=== PATIENT | female | born 1965 | race Caucasian/White ===

== ENCOUNTER 2021-12-07 11:56 | Observation (INO) | payer MEDICARE, MEDICAID ==
[2021-12-07 12:36] LABS: #Basophils 0.1 10x3/uL (0.0-0.2); #Eosinphils 0.4 10x3/uL (0.0-0.5); #Monocytes 0.6 10x3/uL (0.0-1.1); #Neutrophils 6.8 10x3/uL (1.5-8.4); %Basophils 0.7 % (0.0-2.0); %Eosinophils 3.8 % (0.0-6.0); %Lymphocytes 25.9 % (18.0-47.0); %Monocytes 5.2 % (0.0-10.0); %Neutrophils 64.3 % (40.0-75.0); Mean Corpuscular HGB CONC 30.4 g/dL (32.0-36.0); Mean Corpuscular Hemoglobin 27.4 pg (27.0-33.0); Mean Corpuscular Volume 90.2 fl (81.6-98.3); Mean Platelet Volume 10.4 fl (7.4-10.4); Platelet Count 350 10x3/uL (150-450); RBC Distribution Width 15.9 % (11.5-14.5); Red Blood Cell (RBC) Count 5.11 10x6/uL (3.90-5.03); White Blood Cell (WBC) Count 10.6 10x3/uL (3.5-10.5)
[2021-12-07 12:59] LABS: ALT (SGPT) 18 U/L (8-55); AST (SGOT) 19 U/L (5-34); Albumin 4.5 g/dL (3.5-5.0); Alkaline Phosphatase 80 U/L (40-110); Anion Gap 19 mmol/L (10-20); BUN (Urea Nitrogen) 19 mg/dL (9.8-20.1); Bilirubin, Total 0.6 mg/dL (0.2-1.2); Calc. Creatinine Clearance 0 mL/min (70-130); Calcium 9.8 mg/dL (7.8-10.44); Carbon Dioxide 21 mmol/L (22-29); Chloride 103 mmol/L (98-107); Globulin 3.5 g/dL (2.4-3.5); Glucose 193 mg/dL (70-105); Potassium 4.4 mmol/L (3.5-5.1); Sodium 139 mmol/L (136-145)
[2021-12-07 13:02] LABS: Bilirubin Neg (Negative); Blood, Urine Negative (Negative); Clarity Clear (Clear); Glucose, Urine (Dipstick) >=1000 mg/dL (Negative); Ketone, Urine Negative (Negative); Leukocyte 25 (Negative); Nitrite Negative (Negative); Protein, Urine (Dipstick) Negative (Neg-Trace); Specific Gravity, Urine 1.015 (1.002-1.036); Urobilinogen Normal mg/dL (Less than 2)
[2021-12-07 13:10] LABS: Bacteria/HPF Rare-Few HPF (None Seen); RBC/HPF 0-3 HPF (0-3); Squamous Epithelial 0-3 HPF (0-3)
[2021-12-07] MEDS ORDERED: Aspirin 325 MG TAB ONE (14:20)
[2021-12-07 16:50] VITALS: BMI 31.2
[2021-12-07] MEDS ORDERED: Acetaminophen 325 MG TAB PO PRN (19:07)
[2021-12-07] MEDS ORDERED: Ondansetron ODT 4 MG TAB PO PRN (19:07)
[2021-12-07] MEDS ORDERED: hydrALAZINE 20 MG/ML VIAL SLOW IVP PRN (19:09)
[2021-12-07] MEDS ORDERED: ALPRAZolam 1 MG TAB PO PRN (19:10)
[2021-12-07] MEDS ORDERED: Dextrose 50% Abboject 50 ML SYRINGE SLOW IVP PRN (19:11)
[2021-12-07] MEDS ORDERED: Dextrose 5% in Water 1,000 ML IV PRN (19:11)
[2021-12-07] MEDS: HumaLOG 300 UNITS/3 ML VIAL SC PRN (22:15)
[2021-12-08 05:57] LABS: #Basophils 0.1 10x3/uL (0.0-0.2); #Eosinphils 0.4 10x3/uL (0.0-0.5); #Monocytes 0.6 10x3/uL (0.0-1.1); #Neutrophils 4.9 10x3/uL (1.5-8.4); %Basophils 0.7 % (0.0-2.0); %Eosinophils 4.6 % (0.0-6.0); %Lymphocytes 29.7 % (18.0-47.0); %Monocytes 6.8 % (0.0-10.0); Hemoglobin 12.3 g/dL (12.0-15.5); Mean Corpuscular HGB CONC 30.8 g/dL (32.0-36.0); Mean Corpuscular Hemoglobin 27.8 pg (27.0-33.0); Mean Corpuscular Volume 90.3 fl (81.6-98.3); Mean Platelet Volume 10.6 fl (7.4-10.4); Platelet Count 318 10x3/uL (150-450); RBC Distribution Width 15.9 % (11.5-14.5); Red Blood Cell (RBC) Count 4.42 10x6/uL (3.90-5.03); White Blood Cell (WBC) Count 8.5 10x3/uL (3.5-10.5)
[2021-12-08 06:15] LABS: Anion Gap 14 mmol/L (10-20); BUN (Urea Nitrogen) 19 mg/dL (9.8-20.1); Calc. Creatinine Clearance 72 mL/min (70-130); Calcium 9.1 mg/dL (7.8-10.44); Carbon Dioxide 26 mmol/L (22-29); Cardiac Risk 3.8 (Less than 4.5); Chloride 104 mmol/L (98-107); Cholesterol 103 mg/dl (< 200 Desired); Glucose 233 mg/dL (70-105); HDL Cholesterol 27 mg/dL (>60 Neg Risk); LDL Cholesterol, Calculated 52 mg/dL; Sodium 140 mmol/L (136-145); Triglycerides 119 mg/dL (Less than 150)
[2021-12-08] MEDS: Enoxaparin Sodium 40 MG/0.4 ML SYRINGE SC SCH (09:17)
[2021-12-08] MEDS: Clopidogrel Bisulfate 75 MG TAB PO SCH (09:18)
[2021-12-08] MEDS: Aspirin 81 mg Enteric Coated Tablet PO SCH (09:18)
[2021-12-08] MEDS: Atorvastatin Calcium 40 MG TAB PO SCH (09:18)
[2021-12-08] MEDS: HumaLOG 300 UNITS/3 ML VIAL SC PRN ×3 (09:44→21:24)
[2021-12-08] MEDS ORDERED: ALPRAZolam 0.5 MG TAB PO SCH (12:30)
[2021-12-08 14:33] LABS: Hemoglobin A1c 9.7 % (4.0-6.0)
[2021-12-09 02:38] LABS: SARS-CoV-2 PCR by NAA DETECTED (NotDetected)
[2021-12-09 04:32] LABS: #Basophils 0.1 10x3/uL (0.0-0.2); #Eosinphils 0.4 10x3/uL (0.0-0.5); #Monocytes 0.6 10x3/uL (0.0-1.1); #Neutrophils 5.2 10x3/uL (1.5-8.4); %Basophils 0.7 % (0.0-2.0); %Eosinophils 4.7 % (0.0-6.0); %Lymphocytes 29.3 % (18.0-47.0); %Neutrophils 58.1 % (40.0-75.0); Hemoglobin 12.5 g/dL (12.0-15.5); Mean Corpuscular HGB CONC 31.6 g/dL (32.0-36.0); Mean Corpuscular Hemoglobin 27.8 pg (27.0-33.0); Mean Platelet Volume 10.5 fl (7.4-10.4); Platelet Count 302 10x3/uL (150-450); RBC Distribution Width 15.9 % (11.5-14.5); Red Blood Cell (RBC) Count 4.49 10x6/uL (3.90-5.03); White Blood Cell (WBC) Count 8.9 10x3/uL (3.5-10.5)
[2021-12-09 04:41] LABS: Anion Gap 13 mmol/L (10-20); BUN (Urea Nitrogen) 23 mg/dL (9.8-20.1); Calc. Creatinine Clearance 66 mL/min (70-130); Calcium 8.6 mg/dL (7.8-10.44); Carbon Dioxide 23 mmol/L (22-29); Chloride 104 mmol/L (98-107); Glucose 322 mg/dL (70-105); Sodium 136 mmol/L (136-145)
[2021-12-09 05:06] VITALS: BP 115/78; TEMP 97.7
[2021-12-09] MEDS: HumaLOG 300 UNITS/3 ML VIAL SC PRN ×2 (06:24→12:00)
[2021-12-09] MEDS: Clopidogrel Bisulfate 75 MG TAB PO SCH (08:58)
[2021-12-09] MEDS: Enoxaparin Sodium 40 MG/0.4 ML SYRINGE SC SCH (08:58)
[2021-12-09] MEDS: Aspirin 81 mg Enteric Coated Tablet PO SCH (08:58)
[2021-12-09] MEDS: Atorvastatin Calcium 40 MG TAB PO SCH (08:58)
== END 2021-12-09 13:41 | disposition home or self-care (01) ==
LOC: CSHERS 11:56 → UNDOADMOB 16:06 → CSHTELE 16:06
PROVIDERS: ADMIT Family Medicine; ATTEND Internal Medicine
DX: R53.1 Weakness (principal); M79.605 Pain in left leg; I69.951 Hemiplegia and hemiparesis following unspecified cerebrovascular disease affecting right dominant side; U07.1 COVID-19; E11.9 Type 2 diabetes mellitus without complications; E78.5 Hyperlipidemia, unspecified; F41.9 Anxiety disorder, unspecified; F32.A Depression, unspecified; I10 Essential (primary) hypertension; Z79.899 Other long term (current) drug therapy; Z79.84 Long term (current) use of oral hypoglycemic drugs
CPT/HCPCS: 70450; 70551; 71045; 73502; 80048 ×2; 80053; 80061; 82962 ×3; 83036; 83735; 84443; 84484; 85025 ×3; 93005; 93306; 93970; 96372 ×2; 99285; G0378 ×3; U0003; U0005; 36415; 36416; 81003; 81015; J1650; J1815

== ENCOUNTER 2022-06-17 09:27 | Emergency (ER) | payer OTHER ==
[2022-06-17 10:18] LABS: #Basophils 0.1 10x3/uL (0.0-0.2); #Monocytes 0.7 10x3/uL (0.0-1.1); %Basophils 0.8 % (0.0-2.0); %Eosinophils 8.9 % (0.0-6.0); %Lymphocytes 22.3 % (18.0-47.0); %Monocytes 5.9 % (0.0-10.0); %Neutrophils 61.9 % (40.0-75.0); Hemoglobin 11.8 g/dL (12.0-15.5); Mean Corpuscular HGB CONC 30.6 g/dL (32.0-36.0); Mean Corpuscular Hemoglobin 25.2 pg (27.0-33.0); Mean Corpuscular Volume 82.3 fl (81.6-98.3); Mean Platelet Volume 10.3 fl (7.4-10.4); Platelet Count 367 10x3/uL (150-450); RBC Distribution Width 18.6 % (11.5-14.5); Red Blood Cell (RBC) Count 4.68 10x6/uL (3.90-5.03); White Blood Cell (WBC) Count 11.2 10x3/uL (3.5-10.5)
[2022-06-17 10:19] LABS: ALT (SGPT) 23 U/L (8-55); AST (SGOT) 18 U/L (5-34); Albumin 4.3 g/dL (3.5-5.0); Alkaline Phosphatase 77 U/L (40-110); Anion Gap 14 mmol/L (10-20); BUN (Urea Nitrogen) 17 mg/dL (9.8-20.1); Bilirubin, Total 0.5 mg/dL (0.2-1.2); Calc. Creatinine Clearance 0 mL/min (70-130); Calcium 10.1 mg/dL (7.8-10.44); Carbon Dioxide 25 mmol/L (22-29); Chloride 106 mmol/L (98-107); Estimated GFR 61; Globulin 2.7 g/dL (2.4-3.5); Glucose 181 mg/dL (70-105); Potassium 5.1 mmol/L (3.5-5.1); Sodium 140 mmol/L (136-145)
[2022-06-17] MEDS ORDERED: Acetaminophen 500 MG TAB ONE (11:35)
[2022-06-17] MEDS ORDERED: Iopamidol 370 76% 100 ML VIAL ONE (13:33)
== END 2022-06-17 12:42 | disposition home or self-care (01) ==
LOC: CSHERS 09:27
DX: M79.89 Other specified soft tissue disorders (principal); R06.02 Shortness of breath; E11.9 Type 2 diabetes mellitus without complications; I10 Essential (primary) hypertension; E78.5 Hyperlipidemia, unspecified
CPT/HCPCS: 71045; 71275; 80053; 83880; 84484; 85025; 93005; Q9967

== ENCOUNTER 2022-10-20 10:55 | Observation (INO) | payer OTHER ==
[2022-10-20] MEDS ORDERED: Aspirin Chewable 81 MG TAB ONE (11:32)
[2022-10-20 11:51] LABS: #Basophils 0.1 10x3/uL (0.0-0.2); #Eosinphils 0.5 10x3/uL (0.0-0.5); #Monocytes 0.6 10x3/uL (0.0-1.1); #Neutrophils 7.5 10x3/uL (1.5-8.4); %Basophils 0.6 % (0.0-2.0); %Eosinophils 4.1 % (0.0-6.0); %Lymphocytes 24.4 % (18.0-47.0); %Monocytes 5.3 % (0.0-10.0); %Neutrophils 65.3 % (40.0-75.0); Mean Corpuscular HGB CONC 29.7 g/dL (32.0-36.0); Mean Corpuscular Hemoglobin 22.4 pg (27.0-33.0); Mean Corpuscular Volume 75.6 fl (81.6-98.3); Mean Platelet Volume 10.5 fl (7.4-10.4); Platelet Count 452 10x3/uL (150-450); RBC Distribution Width 18.6 % (11.5-14.5); Red Blood Cell (RBC) Count 4.46 10x6/uL (3.90-5.03); White Blood Cell (WBC) Count 11.4 10x3/uL (3.5-10.5)
[2022-10-20 11:58] LABS: ALT (SGPT) 16 U/L (8-55); AST (SGOT) 16 U/L (5-34); Albumin 4.3 g/dL (3.5-5.0); Alkaline Phosphatase 65 U/L (40-110); Anion Gap 14 mmol/L (10-20); BUN (Urea Nitrogen) 25 mg/dL (9.8-20.1); Bilirubin, Total 0.5 mg/dL (0.2-1.2); Calc. Creatinine Clearance 0 mL/min (70-130); Calcium 9.5 mg/dL (7.8-10.44); Carbon Dioxide 23 mmol/L (22-29); Chloride 106 mmol/L (98-107); Estimated GFR 61; Globulin 2.9 g/dL (2.4-3.5); Glucose 164 mg/dL (70-105); Protein, Total 7.2 g/dL (6.0-8.3); Sodium 139 mmol/L (136-145)
[2022-10-20 13:28] LABS: Anisocytosis SLIGHT = 6-15 cells (100X) (0-5/hpf); Hypochromia SLIGHT = 6-15 cells (100X) (0-5/hpf); Microcytosis SLIGHT = 6-15 cells (100X) (0-5/hpf)
[2022-10-20 13:29] LABS: Platelet Morphology Comment Appears Adequate
[2022-10-20] MEDS ORDERED: Acetaminophen 325 MG TAB PO PRN (13:39)
[2022-10-20] MEDS ORDERED: Ondansetron ODT 4 MG TAB PO PRN (13:39)
[2022-10-20] MEDS ORDERED: Ondansetron PF 4 MG/2 ML Vial IVP PRN (13:39)
[2022-10-20] MEDS ORDERED: Dextrose 5% in Water 1,000 ML IV PRN (13:41)
[2022-10-20] MEDS ORDERED: Dextrose 50% Abboject 50 ML SYRINGE SLOW IVP PRN (13:41)
[2022-10-20] MEDS ORDERED: HumaLOG 300 UNITS/3 ML VIAL SC PRN ×2 (13:41)
[2022-10-20] MEDS ORDERED: ALPRAZolam 0.5 MG TAB PO PRN (13:45)
[2022-10-20] MEDS ORDERED: Dextrose 50% Abboject 50 ML SYRINGE ONE (14:25)
[2022-10-20 14:52] LABS: Troponin I Less than 0.010 ng/mL (< 0.028)
[2022-10-20 17:57] LABS: Troponin I Less than 0.010 ng/mL (< 0.028)
[2022-10-20 18:36] LABS: SARS-CoV-2 NAA Rapid Test Not Detected (NotDetected)
[2022-10-20] MEDS: Metoprolol Tartrate 50 MG TAB PO SCH (18:41)
[2022-10-21 05:44] LABS: #Basophils 0.1 10x3/uL (0.0-0.2); #Eosinphils 0.4 10x3/uL (0.0-0.5); #Monocytes 0.7 10x3/uL (0.0-1.1); #Neutrophils 5.8 10x3/uL (1.5-8.4); %Basophils 0.7 % (0.0-2.0); %Eosinophils 4.2 % (0.0-6.0); %Lymphocytes 25.9 % (18.0-47.0); %Monocytes 6.9 % (0.0-10.0); %Neutrophils 62.1 % (40.0-75.0); Hemoglobin 10.2 g/dL (12.0-15.5); Mean Corpuscular Hemoglobin 22.6 pg (27.0-33.0); Mean Corpuscular Volume 75.2 fl (81.6-98.3); Mean Platelet Volume 10.1 fl (7.4-10.4); Platelet Count 460 10x3/uL (150-450); RBC Distribution Width 18.6 % (11.5-14.5); Red Blood Cell (RBC) Count 4.52 10x6/uL (3.90-5.03); White Blood Cell (WBC) Count 9.4 10x3/uL (3.5-10.5)
[2022-10-21 05:55] LABS: Anion Gap 13 mmol/L (10-20); BUN (Urea Nitrogen) 19 mg/dL (9.8-20.1); Calc. Creatinine Clearance 104 mL/min (70-130); Calcium 9.2 mg/dL (7.8-10.44); Carbon Dioxide 27 mmol/L (22-29); Chloride 106 mmol/L (98-107); Estimated GFR 75; Glucose 171 mg/dL (70-105); Sodium 142 mmol/L (136-145)
[2022-10-21] MEDS: Metoprolol Tartrate 50 MG TAB PO SCH (08:35)
[2022-10-21] MEDS ORDERED: Aspirin Chewable 81 MG TAB PO SCH (09:00)
[2022-10-21] MEDS ORDERED: Clopidogrel Bisulfate 75 MG TAB PO SCH (09:00)
[2022-10-21] MEDS ORDERED: Amlodipine 10 MG TAB PO SCH (09:00)
[2022-10-21] MEDS ORDERED: Atorvastatin Calcium 40 MG TAB PO SCH (09:00)
[2022-10-21 09:13] VITALS: BP 119/56; TEMP 98.3
== END 2022-10-21 11:35 | disposition home or self-care (01) ==
LOC: MERGE 10:55 → CSHERS 10:55 → CSHERHOLD 15:14 → INTOOBSV 15:14 → CSHTELE 18:21
PROVIDERS: ADMIT Family Medicine; ATTEND Nurse Practitioner Family
DX: R07.2 Precordial pain (principal); M79.662 Pain in left lower leg; R68.84 Jaw pain; E11.9 Type 2 diabetes mellitus without complications; F41.0 Panic disorder [episodic paroxysmal anxiety]; I10 Essential (primary) hypertension; E78.5 Hyperlipidemia, unspecified; R07.9 Chest pain, unspecified; Z20.822 Contact with and (suspected) exposure to COVID-19; Z86.73 Personal history of transient ischemic attack (TIA), and cerebral infarction without residual deficits; Z79.4 Long term (current) use of insulin; Z79.899 Other long term (current) drug therapy; Z79.82 Long term (current) use of aspirin; Z79.02 Long term (current) use of antithrombotics/antiplatelets
CPT/HCPCS: 71045; 80048; 82962 ×2; 83036; 83735; 83880; 84484 ×2; 85025; 85379; 93005; 93306; 93971; 96374; 99285; G0378 ×3; U0002; 36415; 36416; 80053; 84443; J7999

== ENCOUNTER 2022-12-14 08:58 | Observation (INO) | payer OTHER ==
[2022-12-14] MEDS ORDERED: Iopamidol 300 61% 100 ML VIAL FS ONE (09:09)
[2022-12-14 09:43] LABS: #Basophils 0.1 10x3/uL (0.0-0.2); #Eosinphils 0.4 10x3/uL (0.0-0.5); #Monocytes 0.7 10x3/uL (0.0-1.1); #Neutrophils 7.8 10x3/uL (1.5-8.4); %Basophils 0.7 % (0.0-2.0); %Eosinophils 3.4 % (0.0-6.0); %Lymphocytes 22.3 % (18.0-47.0); %Neutrophils 67.3 % (40.0-75.0); Hemoglobin 9.8 g/dL (12.0-15.5); Mean Corpuscular Hemoglobin 20.7 pg (27.0-33.0); Platelet Count 491 10x3/uL (150-450); RBC Distribution Width 19.9 % (11.5-14.5); Red Blood Cell (RBC) Count 4.73 10x6/uL (3.90-5.03); White Blood Cell (WBC) Count 11.7 10x3/uL (3.5-10.5)
[2022-12-14 10:01] LABS: ALT (SGPT) 19 U/L (8-55); AST (SGOT) 14 U/L (5-34); Albumin 4.2 g/dL (3.5-5.0); Alkaline Phosphatase 77 U/L (40-110); Anion Gap 18 mmol/L (10-20); BUN (Urea Nitrogen) 26 mg/dL (9.8-20.1); Bilirubin, Total 0.4 mg/dL (0.2-1.2); Calc. Creatinine Clearance 0 mL/min (70-130); Calcium 9.4 mg/dL (7.8-10.44); Carbon Dioxide 22 mmol/L (22-29); Chloride 106 mmol/L (98-107); Estimated GFR 53; Globulin 2.8 g/dL (2.4-3.5); Glucose 178 mg/dL (70-105); Lipase 57 U/L (8-78); Potassium 4.9 mmol/L (3.5-5.1); Sodium 141 mmol/L (136-145)
[2022-12-14 10:12] LABS: Hypochromia SLIGHT = 6-15 cells (100X) (0-5/hpf); Microcytosis SLIGHT = 6-15 cells (100X) (0-5/hpf); Ovalocytes SLIGHT = 2-5 cells (100X) (0-1/hpf)
[2022-12-14 10:14] LABS: Platelet Morphology Comment Appears Increased
[2022-12-14] MEDS ORDERED: Nitroglycerin 2% Ointment 1 INCH/1 GM Packet ONE (10:49)
[2022-12-14 11:58] LABS: SARS-CoV-2 NAA Rapid Test Not Detected (NotDetected)
[2022-12-14 12:58] LABS: Bilirubin Neg (Negative); Blood, Urine Negative (Negative); Clarity Clear (Clear); Glucose, Urine (Dipstick) >=1000 mg/dL (Negative); Ketone, Urine Negative (Negative); Leukocyte 100 (Negative); Nitrite Negative (Negative); Protein, Urine (Dipstick) 15 mg/dl (Neg-Trace); Specific Gravity, Urine 1.015 (1.005-1.030); Urobilinogen Normal mg/dL (Less than 2)
[2022-12-14 13:19] LABS: RBC/HPF 0-3 HPF (0-3)
[2022-12-14 13:21] LABS: Bacteria/HPF 1+ HPF (None Seen); Mucous/LPF Rare LPF (<2+); Transitional Epithelial 0-3 HPF (None Seen)
[2022-12-14 13:39] LABS: Lactic Acid 2.2 mmol/L (0.5-2.2)
[2022-12-14] MEDS ORDERED: ALPRAZolam 1 MG TAB PO PRN (16:22)
[2022-12-14] MEDS ORDERED: Dextrose 50% Abboject 50 ML SYRINGE SLOW IVP PRN (16:24)
[2022-12-14] MEDS ORDERED: Dextrose 5% in Water 1,000 ML IV PRN (16:24)
[2022-12-14] MEDS ORDERED: HumaLOG 300 UNITS/3 ML VIAL SC PRN ×2 (16:24)
[2022-12-14] MEDS ORDERED: traMADol HCl 50 MG TAB ONE (16:27)
[2022-12-14] MEDS ORDERED: cefTRIAXone\\ROCEPHIN 1 GM VIAL ONE (16:27)
[2022-12-14] MEDS ORDERED: traMADol HCl 50 MG TAB PO PRN (16:27)
[2022-12-14] MEDS ORDERED: Ondansetron ODT 4 MG TAB PO PRN (16:28)
[2022-12-14] MEDS ORDERED: Benzonatate 100 MG CAP PO PRN (16:28)
[2022-12-14] MEDS ORDERED: Acetaminophen 325 MG TAB PO PRN (16:28)
[2022-12-14] MEDS ORDERED: Ondansetron PF 4 MG/2 ML Vial IVP PRN (16:28)
[2022-12-14] MEDS ORDERED: Senokot S 8.6-50 MG TAB PO PRN (16:28)
[2022-12-14 16:57] LABS: Troponin I Less than 0.010 ng/mL (< 0.028)
[2022-12-14 17:00] LABS: Iron 25 ug/dL (50-170); Iron Binding Capacity, Total 478 mcg/dL (265-497); Transferrin, Serum 382 mg/dL (180-382)
[2022-12-14 19:36] VITALS: BMI 33.2
[2022-12-14] MEDS: Famotidine 20 MG TAB PO SCH (20:15)
[2022-12-14] MEDS: Sodium Chloride 0.9% 1,000 ML IV SCH (20:16)
[2022-12-14 20:45] LABS: Troponin I Less than 0.010 ng/mL (< 0.028)
[2022-12-14] MEDS ORDERED: Atorvastatin Calcium 40 MG TAB PO SCH (21:00)
[2022-12-15 04:42] LABS: Anion Gap 14 mmol/L (10-20); BUN (Urea Nitrogen) 21 mg/dL (9.8-20.1); Calc. Creatinine Clearance 76 mL/min (70-130); Calcium 8.9 mg/dL (7.8-10.44); Carbon Dioxide 24 mmol/L (22-29); Chloride 106 mmol/L (98-107); Estimated GFR 67; Glucose 192 mg/dL (70-105); Potassium 3.9 mmol/L (3.5-5.1); Sodium 140 mmol/L (136-145)
[2022-12-15 04:45] LABS: #Basophils 0.1 10x3/uL (0.0-0.2); #Eosinphils 0.5 10x3/uL (0.0-0.5); #Monocytes 0.7 10x3/uL (0.0-1.1); %Basophils 0.7 % (0.0-2.0); %Eosinophils 4.7 % (0.0-6.0); %Lymphocytes 25.9 % (18.0-47.0); %Monocytes 6.8 % (0.0-10.0); %Neutrophils 61.7 % (40.0-75.0); Hemoglobin 8.9 g/dL (12.0-15.5); Mean Corpuscular HGB CONC 27.2 g/dL (32.0-36.0); Mean Corpuscular Hemoglobin 20.3 pg (27.0-33.0); Mean Corpuscular Volume 74.5 fl (81.6-98.3); Mean Platelet Volume 10.5 fl (7.4-10.4); Platelet Count 435 10x3/uL (150-450); RBC Distribution Width 19.2 % (11.5-14.5); Red Blood Cell (RBC) Count 4.39 10x6/uL (3.90-5.03); White Blood Cell (WBC) Count 9.8 10x3/uL (3.5-10.5)
[2022-12-15] MEDS ORDERED: Ferrous Sulfate 325 MG TAB PO SCH (08:00)
[2022-12-15] MEDS ORDERED: Metoprolol Tartrate 25 MG TAB PO SCH (08:00)
[2022-12-15 08:06] VITALS: TEMP 97.7
[2022-12-15] MEDS: Sodium Chloride 0.9% 1,000 ML IV SCH (08:31)
[2022-12-15] MEDS: Famotidine 20 MG TAB PO SCH (08:33)
[2022-12-15] MEDS ORDERED: Ascorbic Acid 500 mg Chewable Tablet PO SCH (09:00)
[2022-12-15] MEDS ORDERED: metFORMIN 500 MG TAB PO SCH (09:00)
[2022-12-15] MEDS ORDERED: Zinc Sulfate 220 MG CAP PO SCH (09:00)
[2022-12-15] MEDS ORDERED: Aspirin 81 mg Enteric Coated Tablet PO SCH (09:00)
[2022-12-15] MEDS ORDERED: Clopidogrel Bisulfate 75 MG TAB PO SCH (09:00)
[2022-12-15] MEDS ORDERED: Amlodipine 10 MG TAB PO SCH (09:00)
[2022-12-15] MEDS ORDERED: Empagliflozin 25 MG TAB PO SCH (09:00)
[2022-12-15 11:43] VITALS: BP 117/73
[2022-12-15] MEDS ORDERED: cefTRIAXone\\ROCEPHIN 1 GM in Sodium Chloride 0.9% 100 ML IVPB SCH (17:00)
== END 2022-12-15 11:27 | disposition home or self-care (01) ==
LOC: CSHERS 08:58 → CSHTELE 18:56
PROVIDERS: ADMIT Internal Medicine; ATTEND Family Medicine
DX: M94.0 Chondrocostal junction syndrome [Tietze] (principal); N39.0 Urinary tract infection, site not specified; I10 Essential (primary) hypertension; D75.839 Thrombocytosis, unspecified; D50.9 Iron deficiency anemia, unspecified; N17.9 Acute kidney failure, unspecified; Z86.73 Personal history of transient ischemic attack (TIA), and cerebral infarction without residual deficits; E78.5 Hyperlipidemia, unspecified; E11.9 Type 2 diabetes mellitus without complications; F41.9 Anxiety disorder, unspecified; Z88.8 Allergy status to other drugs, medicaments and biological substances; Z79.02 Long term (current) use of antithrombotics/antiplatelets; Z79.82 Long term (current) use of aspirin; Z79.4 Long term (current) use of insulin; Z20.822 Contact with and (suspected) exposure to COVID-19
CPT/HCPCS: 0240U; 71045; 74177; 80048; 80053; 82607; 82962; 83540; 83605; 83690; 83735; 83880; 84484 ×2; 85025 ×2; 87040; 87086; 93005; 94760; 97116; 97535; G0378 ×3; 36415; 36416; 81003; 81015; 83550; 84466; J0696; J1815; J7050; Q9967

== ENCOUNTER 2022-12-29 10:10 | Emergency (ER) | payer OTHER ==
[2022-12-29 11:05] LABS: #Basophils 0.1 10x3/uL (0.0-0.2); #Eosinphils 0.5 10x3/uL (0.0-0.5); #Monocytes 0.6 10x3/uL (0.0-1.1); #Neutrophils 11.8 10x3/uL (1.5-8.4); %Basophils 0.6 % (0.0-2.0); %Eosinophils 3.6 % (0.0-6.0); %Lymphocytes 13.6 % (18.0-47.0); %Neutrophils 77.9 % (40.0-75.0); Hemoglobin 10.9 g/dL (12.0-15.5); Mean Corpuscular HGB CONC 27.6 g/dL (32.0-36.0); Mean Corpuscular Hemoglobin 20.3 pg (27.0-33.0); Mean Corpuscular Volume 73.7 fl (81.6-98.3); Mean Platelet Volume 9.7 fl (7.4-10.4); Platelet Count 473 10x3/uL (150-450); RBC Distribution Width 20.5 % (11.5-14.5); Red Blood Cell (RBC) Count 5.36 10x6/uL (3.90-5.03); White Blood Cell (WBC) Count 15.2 10x3/uL (3.5-10.5)
[2022-12-29 11:18] LABS: ALT (SGPT) 18 U/L (8-55); AST (SGOT) 23 U/L (5-34); Albumin 4.6 g/dL (3.5-5.0); Alkaline Phosphatase 98 U/L (40-110); Anion Gap 16 mmol/L (10-20); BUN (Urea Nitrogen) 20 mg/dL (9.8-20.1); Bilirubin, Total 0.5 mg/dL (0.2-1.2); Calc. Creatinine Clearance 0 mL/min (70-130); Calcium 9.6 mg/dL (7.8-10.44); Carbon Dioxide 20 mmol/L (22-29); Chloride 110 mmol/L (98-107); Estimated GFR 61; Globulin 3.2 g/dL (2.4-3.5); Glucose 60 mg/dL (70-105); Potassium 4.3 mmol/L (3.5-5.1); Protein, Total 7.8 g/dL (6.0-8.3); Sodium 142 mmol/L (136-145)
[2022-12-29 11:32] LABS: Hypochromia SLIGHT = 6-15 cells (100X) (0-5/hpf); Ovalocytes SLIGHT = 2-5 cells (100X) (0-1/hpf); Tear Drops SLIGHT = 2-5 cells (100X) (0-1/hpf)
[2022-12-29 11:33] LABS: Platelet Morphology Comment Appears Adequate
[2022-12-29] MEDS ORDERED: cefTRIAXone\\ROCEPHIN 1 GM VIAL ONE (11:53)
[2022-12-29 12:18] LABS: Bilirubin Neg (Negative); Blood, Urine Negative (Negative); Clarity Clear (Clear); Glucose, Urine (Dipstick) >=1000 mg/dL (Negative); Ketone, Urine 5 mg/dL (Negative); Leukocyte Negative (Negative); Nitrite Negative (Negative); Protein, Urine (Dipstick) 15 mg/dl (Neg-Trace); Urobilinogen Normal mg/dL (Less than 2)
== END 2022-12-29 13:05 | disposition home or self-care (01) ==
LOC: CSHERS 10:10
DX: D72.829 Elevated white blood cell count, unspecified (principal); R10.84 Generalized abdominal pain; E11.9 Type 2 diabetes mellitus without complications; Z79.4 Long term (current) use of insulin; E78.00 Pure hypercholesterolemia, unspecified; I10 Essential (primary) hypertension; Z79.899 Other long term (current) drug therapy; Z79.84 Long term (current) use of oral hypoglycemic drugs; Z79.82 Long term (current) use of aspirin
CPT/HCPCS: 71045; 80053; 81003; 84484; 85025; 93005; 96365; J0696